=== PATIENT | female | born 1950 | race Two or more races ===

== ENCOUNTER 2018-09-06 11:37 | Outpatient (CLI) | payer OTHER | END 2018-09-10 11:00 | disposition home or self-care (01) | LOC: RX STUDY 11:37 | DX: K58.1 Irritable bowel syndrome with constipation (principal); K59.09 Other constipation; K56.50 Intestinal adhesions [bands], unspecified as to partial versus complete obstruction ==

== ENCOUNTER 2018-11-02 05:50 | Day surgery (SDC) | payer OTHER ==
[~2018-11-02 05:50] MED LIST: ALBUTEROL0.63 MG/3 IH; ARNUITY ELLIP100 MCG IH; ASTEPRO205.5 MCG/; AVALIDE 300-121 EACH PO; AZELASTINE HCL6 ML OP; BUDESONIDE0.25 MG/2 IH; CLARITIN10 M2 PO; DEXLANT PO; DICY20TA; PEPCID40 MG PO; PROTONIX40 M1 PO; RESTORA CAPSUL1 EACH PO; SINGULAIR10 MG PO; SYMBICORT 80/10.2 GM IH; VIT C-ROSE HIP500 MG PO; XANAX PO; ZANTAC300 MG PO; [UNRECOGNIZED DRUG - OTHER]; [UNRECOGNIZED DRUG - OTHER] PO
== END 2018-11-02 11:05 | disposition home or self-care (01) ==
LOC: CIR.AMB 05:50
DX: R15.9 Full incontinence of feces (principal)
CPT/HCPCS: 64581; C1778

== ENCOUNTER 2018-11-16 05:50 | Day surgery (SDC) | payer OTHER | END 2018-11-16 11:30 | disposition home or self-care (01) | LOC: CIR.AMB 05:50 | DX: R15.9 Full incontinence of feces (principal) | CPT/HCPCS: 64590; C1767 ==

== ENCOUNTER 2020-06-05 10:56 | Outpatient (CLI) | payer OTHER | END 2020-06-09 11:00 | disposition home or self-care (01) | LOC: RX STUDY 10:56 | PROVIDERS: ATTEND Internal Medicine Gastroenterology | DX: K59.01 Slow transit constipation (principal); K59.09 Other constipation | CPT/HCPCS: 78266; A9541 ==

== ENCOUNTER 2023-08-25 06:07 | Day surgery (SDC) | payer OTHER ==
[~2023-08-25 06:07] MED LIST changes: +AVALIDE 300-121 EACH; +DEXILANT60 MG; +LIPITOR20 MG; +METRONIDAZOLE/SODIUM CHLORIDE 500 MG/100 ML PIGGYBACK IV SCH; +levoFLOXacin IN DEXTROSE 5 % 5 MG/ML PIGGYBAG IV SCH
[2023-08-25] MEDS ORDERED: BUPIVACAINE HCL 30 ML VIAL IJ ONE (10:15)
[2023-08-25] MEDS ORDERED: LIDOCAINE HCL 1%/EPINEPHRINE 20ML VIAL IJ ONE (10:15)
== END 2023-08-25 11:55 | disposition home or self-care (01) ==
LOC: CIR.AMB 06:07
PROVIDERS: ATTEND Colon & Rectal Surgery
DX: R15.9 Full incontinence of feces (principal); K58.1 Irritable bowel syndrome with constipation; K59.09 Other constipation; N39.46 Mixed incontinence; Z88.1 Allergy status to other antibiotic agents; I10 Essential (primary) hypertension; G47.30 Sleep apnea, unspecified
CPT/HCPCS: 64590; 95972; C1767